=== PATIENT | male | born 1965 | race Hispanic/Latino ===

== ENCOUNTER 2022-05-29 12:30 | Inpatient (IN) | payer OTHER ==
[~2022-05-29 12:30] MED LIST: Iopamidol-370 76% 500 ML 1 ML ONE
[2022-05-29] MEDS ORDERED: HYDROcodone/Acetaminophen 5/325 mg Tablet ONE (14:42)
[2022-05-29 15:10] LABS: #Monocytes 0.3 thou/uL (0.11-0.59); #Neutrophils 10.3 thou/uL (1.40-6.50); %Basophils 0.4 % (0.0-1.0); %Lymphocytes 8.3 % (21.0-51.0); %Monocytes 2.7 % (0.0-10.0); %Neutrophils 88.6 % (42.0-75.0); Hemoglobin 11.4 g/dL (14.0-18.0); Mean Corpuscular HGB CONC 29.8 g/dL (32.0-36.0); Mean Corpuscular Hemoglobin 21.3 pg (27.0-31.0); Mean Corpuscular Volume 71.4 fL (78.0-98.0); Mean Platelet Volume 10.4 fL (7.4-10.4); Platelet Count 350 thou/uL (130-400); Red Blood Cell (RBC) Count 5.34 mill/uL (4.70-6.10); White Blood Cell (WBC) Count 11.6 thou/uL (4.8-10.8)
[2022-05-29 15:32] LABS: ALT (SGPT) 13 U/L (8-55); AST (SGOT) 12 U/L (5-34); Albumin 4.3 g/dL (3.5-5.0); Alkaline Phosphatase 116 U/L (40-110); Anion Gap 15 mmol/L (10-20); BUN (Urea Nitrogen) 17 mg/dL (8.4-25.7); Bilirubin, Total 0.3 mg/dL (0.2-1.2); Calc. Creatinine Clearance 0 mL/min (70-130); Calcium 9.5 mg/dL (7.8-10.44); Carbon Dioxide 25 mmol/L (22-29); Chloride 101 mmol/L (98-107); Estimated GFR 93; Glucose 144 mg/dL (70-105); Potassium 3.9 mmol/L (3.5-5.1); Protein, Total 8.3 g/dL (6.0-8.3); Sodium 137 mmol/L (136-145)
[2022-05-29 15:43] LABS: Anisocytosis SLIGHT = 6-15 cells (100X) (0-5/hpf); Hypochromia SLIGHT = 6-15 cells (100X) (0-5/hpf); MDiff Complete? YES; Microcytosis SLIGHT = 6-15 cells (100X) (0-5/hpf); Ovalocytes SLIGHT = 2-5 cells (100X) (0-1/hpf); Platelet Morphology Comment Appears Adequate; Polychromasia SLIGHT = 2-3 cells (100X) (0-2/hpf)
[2022-05-29 16:11] LABS: PTT 32.4 sec (22.9-36.1); Prothrombin Time 13.6 sec (12.0-14.7)
[2022-05-29 16:19] LABS: D-Dimer Test 5.93 *mcg/mL (0.27-0.43)
[2022-05-29] MEDS ORDERED: Ondansetron ODT 4 MG TAB ONE (18:09)
[2022-05-29] MEDS ORDERED: Morphine 4 MG/ML VIAL ONE ×2 (18:09→22:12)
[2022-05-29] MEDS ORDERED: Enoxaparin Sodium 80 MG/0.8 ML SYRINGE ONE (22:12)
[2022-05-29] MEDS ORDERED: diphenhydrAMINE 50 MG/ML VIAL ONE (22:12)
[2022-05-29 23:55] VITALS: BMI 25.8
[2022-05-30] MEDS ORDERED: Morphine 4 MG/ML VIAL SLOW IVP PRN (00:55)
[2022-05-30] MEDS ORDERED: oxyCODONE 5 MG TAB PO PRN (00:56)
[2022-05-30] MEDS ORDERED: Ketorolac Tromethamine 30 MG/ML VIAL ONE ×3 (01:12→12:37)
[2022-05-30] MEDS: Ketorolac Tromethamine 30 MG/ML VIAL IVP SCH ×4 (01:15→20:42)
[2022-05-30] MEDS ORDERED: Methocarbamol 500 MG TAB PO SCH (01:15)
[2022-05-30] MEDS ORDERED: Morphine 4 MG/ML VIAL ONE (02:51)
[2022-05-30 06:33] LABS: #Basophils 0.1 thou/uL (0.0-0.2); #Eosinphils 0.2 thou/uL (0.0-0.7); #Lymphocytes 2.9 thou/uL (1.20-3.40); #Neutrophils 6.8 thou/uL (1.40-6.50); %Basophils 0.5 % (0.0-1.0); %Eosinophils 1.9 % (0.0-10.0); %Lymphocytes 26.3 % (21.0-51.0); %Monocytes 8.8 % (0.0-10.0); %Neutrophils 62.6 % (42.0-75.0); Hemoglobin 10.2 g/dL (14.0-18.0); Mean Corpuscular HGB CONC 29.7 g/dL (32.0-36.0); Mean Corpuscular Hemoglobin 21.4 pg (27.0-31.0); Mean Corpuscular Volume 72.1 fL (78.0-98.0); Mean Platelet Volume 11.3 fL (7.4-10.4); Platelet Count 311 thou/uL (130-400); RBC Distribution Width 19.3 % (11.5-14.5); Red Blood Cell (RBC) Count 4.75 mill/uL (4.70-6.10); White Blood Cell (WBC) Count 10.8 thou/uL (4.8-10.8)
[2022-05-30 06:48] LABS: ALT (SGPT) 10 U/L (8-55); AST (SGOT) 13 U/L (5-34); Albumin 3.7 g/dL (3.5-5.0); Alkaline Phosphatase 98 U/L (40-110); Anion Gap 13 mmol/L (10-20); BUN (Urea Nitrogen) 19 mg/dL (8.4-25.7); Bilirubin, Total 0.3 mg/dL (0.2-1.2); Calc. Creatinine Clearance 88 mL/min (70-130); Calcium 9.2 mg/dL (7.8-10.44); Carbon Dioxide 29 mmol/L (22-29); Chloride 100 mmol/L (98-107); Estimated GFR 81; Globulin 3.6 g/dL (2.4-3.5); Glucose 90 mg/dL (70-105); Potassium 4.7 mmol/L (3.5-5.1); Protein, Total 7.3 g/dL (6.0-8.3); Sodium 137 mmol/L (136-145)
[2022-05-30 06:58] LABS: Hypochromia SLIGHT = 6-15 cells (100X) (0-5/hpf); Large Platelets MODERATE; MDiff Complete? YES; Microcytosis SLIGHT = 6-15 cells (100X) (0-5/hpf); Platelet Morphology Comment Appears Adequate; Polychromasia SLIGHT = 2-3 cells (100X) (0-2/hpf)
[2022-05-30] MEDS ORDERED: HYDROcodone/Acetaminophen 5/325 mg Tablet ONE (09:34)
[2022-05-30] MEDS ORDERED: Enoxaparin Sodium 80 MG/0.8 ML SYRINGE ONE (09:39)
[2022-05-30] MEDS: HYDROcodone/Acetaminophen 5/325 mg Tablet PO PRN ×3 (09:49→20:40)
[2022-05-30] MEDS: Senokot S 8.6-50 MG TAB PO SCH ×2 (09:51→20:44)
[2022-05-30] MEDS: Polyethylene Glycol 3350 17 GM Packet PO SCH ×2 (09:52→20:44)
[2022-05-30] MEDS: Enoxaparin Sodium 80 MG/0.8 ML SYRINGE SC SCH ×2 (09:52→20:43)
[2022-05-30] MEDS: Methocarbamol 500 MG TAB PO SCH ×4 (12:35→20:44)
[2022-05-30] MEDS ORDERED: Ondansetron PF 4 MG/2 ML Vial IVP PRN (14:14)
[2022-05-30] MEDS ORDERED: Acetaminophen ER (8hr) 650 MG TAB PO PRN (14:15)
[2022-05-30] MEDS ORDERED: Prevnar 13-Val Conj/PF 0.5 ML SYRINGE IM ONE (15:15)
[2022-05-30] MEDS: Simvastatin 10 MG TAB PO SCH (20:43)
[2022-05-30] MEDS ORDERED: Gabapentin 300 MG CAP PO SCH (21:00)
[2022-05-31] MEDS: Ketorolac Tromethamine 30 MG/ML VIAL IVP SCH ×2 (01:28→06:28)
[2022-05-31] MEDS: Enoxaparin Sodium 80 MG/0.8 ML SYRINGE SC SCH ×2 (09:31→21:20)
[2022-05-31] MEDS: Lisinopril 10 MG TAB PO SCH (09:32)
[2022-05-31] MEDS: FLUoxetine HCl 10 MG CAP PO SCH (09:32)
[2022-05-31] MEDS: Polyethylene Glycol 3350 17 GM Packet PO SCH ×2 (09:33→21:26)
[2022-05-31] MEDS: Methocarbamol 500 MG TAB PO SCH (09:33)
[2022-05-31] MEDS: HYDROcodone/Acetaminophen 5/325 mg Tablet PO PRN ×2 (09:33→15:02)
[2022-05-31] MEDS: Senokot S 8.6-50 MG TAB PO SCH ×2 (09:33→21:27)
[2022-05-31] MEDS ORDERED: Lidocaine 5% Patch TD SCH (12:00)
[2022-05-31] MEDS: Lidocaine 5% Patch TD SCH (15:04)
[2022-05-31] MEDS ORDERED: Gabapentin 300 MG CAP PO SCH (17:15)
[2022-05-31] MEDS: Morphine 2 MG/ML VIAL SLOW IVP PRN (19:46)
[2022-05-31] MEDS: Ondansetron ODT 4 MG TAB PO PRN (21:23)
[2022-05-31] MEDS: Simvastatin 10 MG TAB PO SCH (21:25)
[2022-05-31] MEDS: Gabapentin 300 MG CAP PO SCH (21:25)
[2022-06-01] MEDS: LIDOCAINE PATCH REMOVAL TOP SCH (01:08)
[2022-06-01] MEDS: Morphine 2 MG/ML VIAL SLOW IVP PRN ×3 (08:17→22:15)
[2022-06-01] MEDS: Lisinopril 10 MG TAB PO SCH (08:35)
[2022-06-01] MEDS: FLUoxetine HCl 10 MG CAP PO SCH (08:35)
[2022-06-01] MEDS: Senokot S 8.6-50 MG TAB PO SCH ×2 (08:35→20:35)
[2022-06-01] MEDS: Enoxaparin Sodium 80 MG/0.8 ML SYRINGE SC SCH ×2 (08:35→20:35)
[2022-06-01] MEDS: Gabapentin 300 MG CAP PO SCH ×4 (08:36→20:35)
[2022-06-01] MEDS: Polyethylene Glycol 3350 17 GM Packet PO SCH ×2 (08:36→20:35)
[2022-06-01] MEDS: Ondansetron ODT 4 MG TAB PO PRN (08:48)
[2022-06-01 09:53] LABS: Anion Gap 13 mmol/L (10-20); BUN (Urea Nitrogen) 15 mg/dL (8.4-25.7); Calc. Creatinine Clearance 111 mL/min (70-130); Calcium 8.8 mg/dL (7.8-10.44); Carbon Dioxide 27 mmol/L (22-29); Chloride 99 mmol/L (98-107); Estimated GFR 101; Glucose 96 mg/dL (70-105); Potassium 4.1 mmol/L (3.5-5.1); Sodium 135 mmol/L (136-145)
[2022-06-01] MEDS ORDERED: Lidocaine 5% Patch TD SCH (10:00)
[2022-06-01] MEDS: HYDROcodone/Acetaminophen 5/325 mg Tablet PO PRN ×2 (10:21→17:33)
[2022-06-01] MEDS: Lidocaine 5% Patch TD SCH (12:50)
[2022-06-01] MEDS: Simvastatin 10 MG TAB PO SCH (20:35)
[2022-06-01] MEDS ORDERED: Lidocaine Patch Removal TOP SCH (22:00)
[2022-06-02] MEDS: LIDOCAINE PATCH REMOVAL TOP SCH (01:07)
[2022-06-02] MEDS: HYDROcodone/Acetaminophen 5/325 mg Tablet PO PRN ×2 (02:28→08:44)
[2022-06-02] MEDS: Morphine 2 MG/ML VIAL SLOW IVP PRN ×2 (06:06→17:45)
[2022-06-02] MEDS: Enoxaparin Sodium 80 MG/0.8 ML SYRINGE SC SCH ×2 (08:43→19:40)
[2022-06-02] MEDS: Senokot S 8.6-50 MG TAB PO SCH ×2 (08:44→19:40)
[2022-06-02] MEDS: Polyethylene Glycol 3350 17 GM Packet PO SCH ×2 (08:44→19:40)
[2022-06-02] MEDS: Gabapentin 300 MG CAP PO SCH ×3 (08:44→19:39)
[2022-06-02] MEDS: Lisinopril 10 MG TAB PO SCH ×2 (08:44→08:45)
[2022-06-02] MEDS: FLUoxetine HCl 10 MG CAP PO SCH ×2 (08:44→08:45)
[2022-06-02] MEDS: HYDROcodone/Acetaminophen 5/325 mg Tablet PO SCH ×2 (12:37→19:38)
[2022-06-02] MEDS: Lidocaine 5% Patch TD SCH (12:37)
[2022-06-02] MEDS: Simvastatin 10 MG TAB PO SCH (19:40)
[2022-06-02] MEDS ORDERED: Gabapentin 300 MG CAP PO SCH ×2 (20:45→21:00)
[2022-06-02] MEDS ORDERED: Morphine 2 MG/ML VIAL SLOW IVP SCH (20:45)
[2022-06-03] MEDS: LIDOCAINE PATCH REMOVAL TOP SCH (00:32)
[2022-06-03] MEDS: Morphine 4 MG/ML VIAL SLOW IVP PRN ×5 (00:58→23:23)
[2022-06-03] MEDS: HYDROcodone/Acetaminophen 5/325 mg Tablet PO SCH ×3 (04:46→21:17)
[2022-06-03] MEDS: Enoxaparin Sodium 80 MG/0.8 ML SYRINGE SC SCH (08:57)
[2022-06-03] MEDS: Gabapentin 300 MG CAP PO SCH ×3 (08:57→21:23)
[2022-06-03] MEDS: Senokot S 8.6-50 MG TAB PO SCH ×2 (08:59→21:24)
[2022-06-03] MEDS: Polyethylene Glycol 3350 17 GM Packet PO SCH ×2 (08:59→21:24)
[2022-06-03 09:18] LABS: #Basophils 0.1 thou/uL (0.0-0.2); #Eosinphils 0.2 thou/uL (0.0-0.7); #Lymphocytes 1.3 thou/uL (1.20-3.40); #Monocytes 0.7 thou/uL (0.11-0.59); #Neutrophils 5.7 thou/uL (1.40-6.50); %Basophils 0.7 % (0.0-1.0); %Eosinophils 2.4 % (0.0-10.0); %Lymphocytes 16.3 % (21.0-51.0); %Monocytes 9.1 % (0.0-10.0); %Neutrophils 71.5 % (42.0-75.0); Hemoglobin 10.4 g/dL (14.0-18.0); Mean Corpuscular HGB CONC 29.8 g/dL (32.0-36.0); Mean Corpuscular Hemoglobin 21.8 pg (27.0-31.0); Mean Corpuscular Volume 73.2 fL (78.0-98.0); Mean Platelet Volume 10.6 fL (7.4-10.4); Platelet Count 231 thou/uL (130-400); RBC Distribution Width 18.8 % (11.5-14.5); Red Blood Cell (RBC) Count 4.76 mill/uL (4.70-6.10)
[2022-06-03 09:36] LABS: Anion Gap 11 mmol/L (10-20); BUN (Urea Nitrogen) 10 mg/dL (8.4-25.7); Calc. Creatinine Clearance 111 mL/min (70-130); Calcium 8.5 mg/dL (7.8-10.44); Carbon Dioxide 29 mmol/L (22-29); Chloride 95 mmol/L (98-107); Estimated GFR 101; Glucose 146 mg/dL (70-105); Potassium 4.2 mmol/L (3.5-5.1); Sodium 131 mmol/L (136-145)
[2022-06-03] MEDS: Lidocaine 5% Patch TD SCH (12:43)
[2022-06-03] MEDS: hydrOXYzine 25 MG TAB PO SCH ×2 (21:17→21:59)
[2022-06-03] MEDS: Simvastatin 10 MG TAB PO SCH (21:28)
[2022-06-04] MEDS: LIDOCAINE PATCH REMOVAL TOP SCH (01:36)
[2022-06-04] MEDS: HYDROcodone/Acetaminophen 5/325 mg Tablet PO SCH ×2 (03:22→11:41)
[2022-06-04] MEDS: Morphine 4 MG/ML VIAL SLOW IVP PRN ×2 (07:15→14:35)
[2022-06-04 08:06] VITALS: BP 150/91; TEMP 98.6
[2022-06-04] MEDS ORDERED: Sodium Bicarbonate 2.5 MEQ/5 ML VIAL ONE (08:53)
[2022-06-04] MEDS ORDERED: Lidocaine 1% PF 5 ML VIAL ONE ×2 (08:54→09:46)
[2022-06-04 09:21] LABS: Anion Gap 13 mmol/L (10-20); BUN (Urea Nitrogen) 9 mg/dL (8.4-25.7); Calc. Creatinine Clearance 119 mL/min (70-130); Calcium 9.1 mg/dL (7.8-10.44); Carbon Dioxide 27 mmol/L (22-29); Chloride 98 mmol/L (98-107); Estimated GFR 103; Glucose 113 mg/dL (70-105); Potassium 4.3 mmol/L (3.5-5.1); Sodium 134 mmol/L (136-145)
[2022-06-04] MEDS ORDERED: Fentanyl 100 MCG/2 ML VIAL ONE (10:09)
[2022-06-04] MEDS: Gabapentin 300 MG CAP PO SCH ×2 (11:38→14:34)
[2022-06-04] MEDS: FLUoxetine HCl 10 MG CAP PO SCH (11:38)
[2022-06-04] MEDS: Lisinopril 10 MG TAB PO SCH (11:39)
[2022-06-04] MEDS: Polyethylene Glycol 3350 17 GM Packet PO SCH (11:40)
[2022-06-04] MEDS: Senokot S 8.6-50 MG TAB PO SCH (11:40)
[2022-06-04 13:16] LABS: RBC Count-Automated (BF) 69002 /cu.mm
[2022-06-04 13:33] LABS: BF Color Red; Clarity Cloudy/Turbid (Clear); Tube # EDTA
[2022-06-04 13:34] LABS: WBC/Nucleated-Auto (BF) 131 /cu.mm
[2022-06-04] MEDS ORDERED: Apixaban 5 MG TAB PO SCH ×4 (13:38→21:00)
[2022-06-04 14:00] LABS: BF Segmented Neutrophils 65 %; Cell Count Non Hematic 27 %; Lymphocytes 8 %
[2022-06-04] MEDS: Lidocaine 5% Patch TD SCH (14:36)
== END 2022-06-04 17:40 | disposition home or self-care (01) | DRG 543 ==
LOC: ERS 12:30 → ERHOLD 21:41 → MSONC 05-30 12:54 → OBSVTOIN 05-30 18:42
PROVIDERS: ADMIT Student in an Organized Health Care Education/Training Program; ATTEND Student in an Organized Health Care Education/Training Program
PROC: 0JBC3ZX Excision of Pelvic Region Subcutaneous Tissue and Fascia, Percutaneous Approach, Diagnostic (ICD-10-PCS; principal; 2022-06-04)
PROC: 0J9C3ZX Drainage of Pelvic Region Subcutaneous Tissue and Fascia, Percutaneous Approach, Diagnostic (ICD-10-PCS; 2022-06-04)
DX: M84.454A Pathological fracture, pelvis, initial encounter for fracture (principal); I82.422 Acute embolism and thrombosis of left iliac vein; Z20.822 Contact with and (suspected) exposure to COVID-19; Z23 Encounter for immunization; I10 Essential (primary) hypertension; E78.5 Hyperlipidemia, unspecified; G47.33 Obstructive sleep apnea (adult) (pediatric); E78.2 Mixed hyperlipidemia; M48.061 Spinal stenosis, lumbar region without neurogenic claudication; M54.16 Radiculopathy, lumbar region; R19.09 Other intra-abdominal and pelvic swelling, mass and lump; Z85.528 Personal history of other malignant neoplasm of kidney; Z85.46 Personal history of malignant neoplasm of prostate; Z85.01 Personal history of malignant neoplasm of esophagus; Z98.890 Other specified postprocedural states; Z90.79 Acquired absence of other genital organ(s); Z90.5 Acquired absence of kidney; Z87.891 Personal history of nicotine dependence; Z92.21 Personal history of antineoplastic chemotherapy; Z99.3 Dependence on wheelchair; Z99.89 Dependence on other enabling machines and devices; Z92.3 Personal history of irradiation; Z85.21 Personal history of malignant neoplasm of larynx
CPT/HCPCS: 36415; 49060; 49180; 74177; 76942; 77012; 78306; 80048; 80053; 85025; 85060; 85379; 85610; 85730; 87070; 87205; 88305; 88333; 88334; 89051; 96372; 96374; 96375; 96376; A9503; C1729; G0378; J1200; J1650; J1885; J2270; J3010; Q0162; Q9967; U0003; U0005

== ENCOUNTER 2022-08-02 21:03 | Inpatient (IN) | payer OTHER ==
[2022-08-03 00:13] VITALS: BMI 26.2
[2022-08-03] MEDS ORDERED: Ondansetron ODT 4 MG TAB PO PRN (01:29)
[2022-08-03] MEDS ORDERED: Acetaminophen 325 MG TAB PO PRN (01:29)
[2022-08-03] MEDS ORDERED: Ondansetron PF 4 MG/2 ML Vial IVP PRN (01:29)
[2022-08-03] MEDS ORDERED: Acetaminophen 650 MG Suppository PR PRN (01:29)
[2022-08-03 02:37] LABS: #Eosinphils 0.1 thou/uL (0.0-0.7); #Monocytes 0.9 thou/uL (0.11-0.59); #Neutrophils 10.4 thou/uL (1.40-6.50); %Basophils 0.3 % (0.0-1.0); %Eosinophils 0.8 % (0.0-10.0); %Lymphocytes 8.3 % (21.0-51.0); %Monocytes 6.9 % (0.0-10.0); %Neutrophils 83.7 % (42.0-75.0); Hemoglobin 7.7 g/dL (14.0-18.0); Mean Corpuscular HGB CONC 29.9 g/dL (32.0-36.0); Mean Corpuscular Hemoglobin 24.6 pg (27.0-31.0); Mean Corpuscular Volume 82.3 fL (78.0-98.0); Mean Platelet Volume 7.4 fL (7.4-10.4); Platelet Count 628 thou/uL (130-400); RBC Distribution Width 15.7 % (11.5-14.5); Red Blood Cell (RBC) Count 3.11 mill/uL (4.70-6.10); White Blood Cell (WBC) Count 12.4 thou/uL (4.8-10.8)
[2022-08-03] MEDS: Morphine 4 MG/ML VIAL SLOW IVP PRN ×2 (02:39→09:29)
[2022-08-03 02:53] LABS: Anion Gap 14 mmol/L (10-20); BUN (Urea Nitrogen) 9 mg/dL (8.4-25.7); Calc. Creatinine Clearance 133 mL/min (70-130); Calcium 8.5 mg/dL (7.8-10.44); Carbon Dioxide 26 mmol/L (22-29); Chloride 95 mmol/L (98-107); Estimated GFR 106; Glucose 103 mg/dL (70-105); Potassium 4.1 mmol/L (3.5-5.1); Sodium 131 mmol/L (136-145)
[2022-08-03 05:07] VITALS: BP 126/70
[2022-08-03 09:06] LABS: Hemoglobin 7.8 g/dL (14.0-18.0)
[2022-08-03] MEDS ORDERED: HYDROcodone/Acetaminophen 10/325 mg Tablet PO PRN (13:58)
[2022-08-03 15:52] VITALS: TEMP 97.5
[2022-08-06] MEDS ORDERED: Prevnar 13-Val Conj/PF 0.5 ML SYRINGE IM ONE (09:00)
== END 2022-08-03 18:35 | disposition left against medical advice (07) | DRG 723 ==
LOC: T4-B 21:03 → IMCU/EMU 08-03 07:12
PROVIDERS: ADMIT Student in an Organized Health Care Education/Training Program; ATTEND Hospitalist
DX: C76.3 Malignant neoplasm of pelvis (principal); N13.39 Other hydronephrosis; R31.9 Hematuria, unspecified; Z20.822 Contact with and (suspected) exposure to COVID-19; I10 Essential (primary) hypertension; D63.0 Anemia in neoplastic disease; K82.8 Other specified diseases of gallbladder; Z85.46 Personal history of malignant neoplasm of prostate; Z85.01 Personal history of malignant neoplasm of esophagus; Z86.711 Personal history of pulmonary embolism; Z79.01 Long term (current) use of anticoagulants; Z86.718 Personal history of other venous thrombosis and embolism; Z95.828 Presence of other vascular implants and grafts; Z85.528 Personal history of other malignant neoplasm of kidney; Z85.21 Personal history of malignant neoplasm of larynx
CPT/HCPCS: 36415; 76705; 76856; 80048; 85025; J2270; U0003; U0005